=== PATIENT | female | born 1950 | race African-American/Black ===

== ENCOUNTER → 2016-09-19 | Outpatient (CLI) | payer OTHER ==
[~2016-09-19] MED LIST: ASPIR 8181 MG PO; COREG6.25 MG PO; GLUCOPHAGE500 MG PO; HYDRALAZINE HCL50 MG PO; LANTUS100 UNIT/1 SC; LIPITOR TAB 2020 MG PO; LOSARTAN-HCTZ1 EAC2 PO; LYRICA75 MG PO; NITROSTAT 0.40.4 MG SL; NORVASC 5 MG TAB5 MG PO; TRAMADOL HCL E150 MG PO; TYLENOL W/CODEIN1 E1 PO
[2016-09-19 19:25] LABS: HEMOGLOBIN 15.9 gm/dl (12.3-15.3); RED BLOOD COUNT 5.84 M/UL (4.00-5.10); WHITE BLOOD COUNT 6.8 K/UL (4.5-11.0)
== END ==
LOC: LAB 18:54
PROVIDERS: Internal Medicine Cardiovascular Disease
DX: I11.0 Hypertensive heart disease with heart failure (principal); I50.22 Chronic systolic (congestive) heart failure; I25.10 Atherosclerotic heart disease of native coronary artery without angina pectoris; I25.5 Ischemic cardiomyopathy
CPT/HCPCS: 80048; 85025

== ENCOUNTER 2016-09-21 07:19 | Outpatient (CLI) | payer OTHER ==
[~2016-09-21] VITALS: Ht 160 cm; Wt 79.8 kg
[2016-09-21] MEDS ORDERED: ASPIR 8181 MG PO (08:14)
[2016-09-21] MEDS ORDERED: COREG6.25 MG PO (08:14)
[2016-09-21] MEDS ORDERED: LIPITOR TAB 2020 MG PO (08:18)
[2016-09-21] MEDS ORDERED: LANTUS100 UNIT/1 SC (08:18)
[2016-09-21] MEDS ORDERED: LOSARTAN-HCTZ1 EAC2 PO (08:19)
[2016-09-21] MEDS ORDERED: LYRICA75 MG PO (08:20)
[2016-09-21] MEDS ORDERED: TRAMADOL HCL E150 MG PO (08:21)
[2016-09-21] MEDS ORDERED: NORVASC 5 MG TAB5 MG PO (17:53)
[2016-09-21] MEDS ORDERED: HYDRALAZINE HCL50 MG PO (17:53)
[2016-09-22] MEDS ORDERED: TYLENOL W/CODEIN1 E1 PO (10:55)
[2016-09-22] MEDS ORDERED: NITROSTAT 0.40.4 MG SL (10:56)
[2017-01-01] MEDS ORDERED: GLUCOPHAGE500 MG PO (08:14)
== END 2016-09-22 11:11 | disposition home or self-care (01) ==
LOC: CATH 07:19 → PROG CARE 13:31 → CATH 09-22 11:11
PROC: 02H43KZ Insertion of Defibrillator Lead into Coronary Vein, Percutaneous Approach (ICD-10-PCS; principal; 2016-09-21)
PROC: 0JH609Z Insertion of Cardiac Resynchronization Defibrillator Pulse Generator into Chest Subcutaneous Tissue and Fascia, Open Approach (ICD-10-PCS; principal; 2016-09-21)
PROC: 02HK3KZ Insertion of Defibrillator Lead into Right Ventricle, Percutaneous Approach (ICD-10-PCS; principal; 2016-09-21)
DX: I11.0 Hypertensive heart disease with heart failure (principal); I50.22 Chronic systolic (congestive) heart failure; I44.7 Left bundle-branch block, unspecified; I25.2 Old myocardial infarction; I25.5 Ischemic cardiomyopathy; I25.10 Atherosclerotic heart disease of native coronary artery without angina pectoris; E11.9 Type 2 diabetes mellitus without complications; E78.5 Hyperlipidemia, unspecified; Z95.1 Presence of aortocoronary bypass graft; Z79.82 Long term (current) use of aspirin; Z79.4 Long term (current) use of insulin; Z79.899 Other long term (current) drug therapy; Z98.890 Other specified postprocedural states
CPT/HCPCS: 33225; 33249; 71010; 82565; 82962; 84132; 93005; 93641; C1882; C1898; C1900; J1200; J1644; J2250; J3010; J3370; J7040; J7050; J7070; Q9965

== ENCOUNTER → 2016-10-12 | Outpatient (CLI) | payer OTHER | LOC: CARD REHAB 10:00 | DX: Z48.812 Encounter for surgical aftercare following surgery on the circulatory system (principal); I50.22 Chronic systolic (congestive) heart failure ==

== ENCOUNTER → 2016-10-19 | Outpatient (CLI) | payer OTHER ==
[2016-10-19 15:59] LABS: HEMOGLOBIN 13.3 gm/dl (12.3-15.3); RED BLOOD COUNT 4.9 M/UL (4.00-5.10); WHITE BLOOD COUNT 4.4 K/UL (4.5-11.0)
== END ==
LOC: LAB 14:57
PROVIDERS: Internal Medicine Nephrology
DX: N18.3 Chronic kidney disease, stage 3 (moderate) (principal); R10.83 Colic; E11.65 Type 2 diabetes mellitus with hyperglycemia
CPT/HCPCS: 36415; 80053; 82150; 82570; 83036; 84156; 85027